=== PATIENT | male | born 1990 | race Caucasian/White ===

== ENCOUNTER 2019-01-31 12:10 | Emergency (ER) | payer MEDICAID ==
[~2019-01-31] VITALS: Ht 170.2 cm; Wt 70.8 kg
[2019-01-31 13:02] VITALS: Ht 170.2 cm; Wt 70.8 kg
[2019-01-31 16:07] VITALS: BP 121/75
== END 2019-01-31 16:07 | disposition home or self-care (01) ==
LOC: ED 12:10
DX: S00.03XA Contusion of scalp, initial encounter (principal); R11.0 Nausea; Z88.6 Allergy status to analgesic agent; Y04.0XXA Assault by unarmed brawl or fight, initial encounter; Y93.89 Activity, other specified; Y92.89 Other specified places as the place of occurrence of the external cause; Y99.8 Other external cause status